=== PATIENT | male | born 1980 | race Caucasian/White ===

== ENCOUNTER 2016-08-23 12:21 | Emergency (ER) | payer BC ==
[~2016-08-23] VITALS: Ht 167.6 cm; Wt 77.0 kg
[2016-08-23 12:23] VITALS: Ht 167.6 cm; Wt 77.0 kg
[2016-08-23] MEDS ORDERED: IBUPROFEN 600 MG TAB PO ONE (13:30)
[2016-08-23] MEDS ORDERED: DIPHTH/TET/ACEL PERTUSS (ADULT) 0.5 ML VIAL IM* ONE (13:30)
--- NOTE | 2016-08-23 13:55 | RADRPT ---
PROCEDURE: XR Knee. CLINICAL INDICATION: Pain. TECHNIQUE: AP, lateral and oblique views of the right knee were obtained. The images reviewed on a PACS workstation. COMPARISON: None. FINDINGS: The bones appear intact, with no evidence of fracture, erosion, demineralization, or dislocation. Th e alignment of the femorotibial and patellofemoral joints appears normal. No joint space narrowing i s seen. No evidence of effusion or soft tissue swelling is present. IMPRESSION: Unremarkable examination of the right knee. RPTAT: QQ. .Danuta Cabral MD, Date Time Electronically viewed and signed by .Danuta Cabral MD, on 08/23/2016 13:54 .M/
[2016-08-23] MEDS ORDERED: IBUP-1542 PO (14:08)
[2016-08-23] MEDS ORDERED: HYDR-906 PO (14:08)
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
== END 2016-08-23 15:57 | disposition home or self-care (01) ==
LOC: FTE 12:21
DX: S80.01XA Contusion of right knee, initial encounter (principal); V29.9XXA Motorcycle rider (driver) (passenger) injured in unspecified traffic accident, initial encounter; Z23 Encounter for immunization
CPT/HCPCS: 73562; 90471; 90715